=== PATIENT | female | born 1975 | race Caucasian/White ===

== ENCOUNTER → 2021-06-17 | Outpatient (CLI) | payer OTHER | LOC: COL.RAD 06-11 08:15 | DX: K82.9 Disease of gallbladder, unspecified (principal); K76.89 Other specified diseases of liver ==

== ENCOUNTER → 2021-07-30 | Outpatient (CLI) | payer OTHER | LOC: MC.RAD 08:38 | DX: Z12.31 Encounter for screening mammogram for malignant neoplasm of breast (principal) ==

== ENCOUNTER → 2023-09-15 | Outpatient (CLI) | payer OTHER | LOC: MC.RAD 09:00 | DX: Z12.31 Encounter for screening mammogram for malignant neoplasm of breast (principal) ==